=== PATIENT | female | born 1960 | race Caucasian/White ===

== ENCOUNTER 2022-03-31 08:27 | Outpatient (CLI) | payer BC | END 2022-03-31 08:28 | disposition home or self-care (01) | LOC: CSHRAD 08:27 | PROVIDERS: ATTEND Surgery | DX: K20.90 Esophagitis, unspecified without bleeding (principal); K44.9 Diaphragmatic hernia without obstruction or gangrene; K21.9 Gastro-esophageal reflux disease without esophagitis; K22.89 Other specified disease of esophagus | CPT/HCPCS: 74220 ==